=== PATIENT | female | born 1945 | race Caucasian/White ===

== ENCOUNTER → 2016-10-24 | Outpatient (CLI) | payer BC, MEDICARE ==
[~2016-10-24] MED LIST: ADVIL200 MG PO; COLACE100 MG PO; FLORASTOR250 MG PO; MIRALAX17 GM PO; NEURONTIN300 MG PO; ROXICODONE 5MG (5 MG PO; TYLENOL EXTRA500 MG PO; VALIUM5 MG PO; XARELTO10 MG PO
== END | disposition disaster alternative care site (69) ==
LOC: GBCOE 10-23 07:00
DX: Z12.31 Encounter for screening mammogram for malignant neoplasm of breast (principal)
CPT/HCPCS: G0202